=== PATIENT | male | born 1945 | race Caucasian/White ===

== ENCOUNTER 2017-04-24 05:28 | Inpatient (IN) ==
--- NOTE | 2017-04-09 11:17 | EKG Report ---
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
[2017-04-09 11:32] LABS: Basophils # 0.1 10*3/uL (0.0-0.2); Basophils % 0.5 % (0.0-0.8); Eosinophils # 0.1 10*3/uL (0.0-0.87); Eosinophils % 1.5 % (0.00-10.9); Hematocrit 45.7 VOL% (42.0-52.0); Hemoglobin 15.5 GM/DL (14.0-18.0); Immature Granulocytes % 0.4 %; Immature Granulocytes Absolute 0.04 #; Lymphocytes # 2.8 10*3/uL (1.4-4.0); Lymphocytes % 30.8 % (21.2-54.2); Mean Corpuscular HGB Conc 33.9 GM/DL (32-36); Mean Corpuscular Hemoglobin 31 PG (27-34); Mean Corpuscular Volume 90.5 FL (87-102); Mean Platelet Volume 9.8 FL (9.6-12.0); Monocytes # 0.9 10*3/uL (0.11-0.8); Monocytes % 9.7 % (1.7-12.7); Neutrophils # 5.2 10*3/uL (1.4-7.4); Neutrophils % 57.1 % (38.7-73.9); Platelet Count 217 T/CUMM (130-400); Red Blood Count 5.05 MC/CUMM (3.8-5.5); Red Cell Distribution Width 13.1 % (9.3-17.3); White Blood Count 9.2 T/CUMM (4-12)
[2017-04-09 11:35] LABS: Apearance,Urine CLEAR (Clear); Bilirubin,Urine Negative (Negative); Blood, Urine Negative (Negative); Glucose,Urine (UA) Negative (Negative); Ketones,Urine Negative (Negative); Nitrite,Urine Negative (Negative); Protein,Urine Negative; Squamous Epithelial Cell,Urine Occasional /HPF (0-10); Urine Color Straw (Yellow); Urine Specific Gravity 1.006 (1.001-1.035); Urine Urobilinogen < 2.0 EU/DL (0.2-1.0); WBC,Urine <1 /HPF (0-6)
[2017-04-09 11:42] LABS: PT Patient Result 10.4 SECS; Partial Thromboplastin Time 27.3 SECS (0-40)
[2017-04-09 12:10] LABS: Albumin 4.2 G/DL (3.4-5.0); Bilirubin,Total 0.6 MG/DL (0.2-1.0); Calcium 8.8 MG/DL (8.5-10.1); Osmolality,Calculated 282.1 MOS/KG (273-304); Potassium 4.7 MMOL/L (3.5-5.1); Total Protein 7.3 G/DL (6.4-8.3)
--- NOTE | 2017-04-09 14:13 | XRay Report ---
XR chest 2V Date: 04/09/2017 10:58 AM History: Respiratory preoperative evaluation Comparison: 11/12/2016 Technique: PA and lateral chest Findings: The heart is minimally enlarged with uncoiling of the aorta. Chronic scarring in the lungs with calcified granulomata. Stable mediastinum with degenerative changes. Impression: No acute cardiopulmonary pathology identified. PROCEDURE INTERPRETED AT [facility] DEPARTMENT OF RADIOLOGY Final Report Signed by: Dr. Blaire Chao
[~2017-04-24 05:28] MED LIST: LIDOCAINE 100 MG/5 ML SYRINGE ONE; ONDANSETRON 4 MG/2 ML VIAL ONE; PROPOFOL 200 MG/20 ML VIAL IV ONE
[2017-04-24] MEDS ORDERED: VANCOMYCIN 1,000 MG VIAL ONE (05:54)
[2017-04-24] MEDS ORDERED: SODIUM CHLORIDE 0.9% 100 ML IV ONE (05:54)
[2017-04-24] MEDS ORDERED: ceFAZolin 1,000 MG VIAL ONE (05:54)
[2017-04-24] MEDS ORDERED: LORazepam 1 MG TABLET PO ONE (06:00)
[2017-04-24] MEDS ORDERED: FAMOTIDINE 20 MG TABLET PO ONE (06:00)
[2017-04-24] MEDS ORDERED: TRANEXAMIC ACID 1,000 MG/10 ML VIAL IV ONE (06:13)
[2017-04-24] MEDS ORDERED: ONDANSETRON 4 MG/2 ML VIAL IV PRN ×3 (06:23→11:14)
[2017-04-24] MEDS ORDERED: HYDROmorphone 2 MG/1 ML VIAL IV PRN ×2 (06:23→11:14)
[2017-04-24] MEDS: LACTATED RINGERS 1,000 ML IV SCH ×2 (06:30→08:00)
[2017-04-24] MEDS ORDERED: CLINDAMYCIN INJ 900 MG in PREMIX 1 EACH IV ONE (06:30)
[2017-04-24] MEDS ORDERED: VANCOMYCIN INJ 1,000 MG in SODIUM CHLORIDE 0.9% 250 ML IV ONE (06:30)
[2017-04-24] MEDS ORDERED: methylPREDNISolone SOD SUC 125 MG/2 ML VIAL ONE (06:35)
[2017-04-24] MEDS ORDERED: EPINEPHrine 1 MG/ML VIAL ONE (06:35)
[2017-04-24] MEDS ORDERED: MORPHINE 10 MG/1 ML VIAL ONE (06:35)
[2017-04-24] MEDS ORDERED: BUPIVACAINE 0.5% 50 ML VIAL ONE (06:35)
[2017-04-24] MEDS ORDERED: FAMOTIDINE 20 MG TABLET ONE (06:40)
[2017-04-24] MEDS ORDERED: LORazepam 1 MG TABLET ONE (06:40)
[2017-04-24] MEDS ORDERED: ACETAMINOPHEN 500 MG TABLET ONE (06:53)
[2017-04-24] MEDS ORDERED: ACETAMINOPHEN 500 MG TABLET PO STA (07:00)
[2017-04-24] MEDS: GABAPENTIN 400 MG CAPSULE PO SCH ×2 (07:00→14:47)
--- NOTE | 2017-04-24 07:00 | History and Physical Update ---
History and Physical Update - History and Physical H&P was reviewed, the patient examined and there: are no changes in the patients condition since last H&P was completed. - Dictation Physical: refer to scanned H&P
[2017-04-24] MEDS ORDERED: TEMAZEPAM 7.5 MG CAPSULE PO PRN (08:24)
[2017-04-24] MEDS ORDERED: MAGNESIUM HYDROXIDE SUSP 30 ML UDCUP PO PRN (08:24)
[2017-04-24] MEDS ORDERED: diphenhydrAMINE CAP 25 MG CAPSULE PO PRN (08:24)
[2017-04-24] MEDS ORDERED: ROPIVACAINE 0.5% 30 ML VIAL ONE (08:33)
[2017-04-24] MEDS ORDERED: fentaNYL 100 MCG/2 ML VIAL ONE (08:38)
[2017-04-24] MEDS ORDERED: MIDAZOLAM 2 MG/2 ML VIAL ONE (08:38)
[2017-04-24] MEDS ORDERED: ACETAMINOPHEN 1,000 MG/100 ML VIAL IV ONE (08:38)
--- NOTE | 2017-04-24 09:08 | XRay Report ---
XR knee 2V RT Indication: Joint replacement (right knee) Comparison: None Technique: Frontal and lateral views of the right knee Findings: Status post total right knee arthroplasty. Surgical drain and superficial skin megan overlie the knee. No evidence of immediate hardware failure. Subcutaneous and joint space air noted which is likely postoperative. IMPRESSION: Status post total right knee arthroplasty PROCEDURE INTERPRETED AT [facility] DEPARTMENT OF RADIOLOGY Final Report Signed by: Dr Gregory Hewitt
[2017-04-24] MEDS ORDERED: HYDROmorphone 2 MG/1 ML VIAL ONE (11:14)
[2017-04-24] MEDS ORDERED: ONDANSETRON 4 MG/2 ML VIAL ONE (11:14)
--- NOTE | 2017-04-24 13:34 | Anesthesia Post-Op ---
Anesthesia Post OP - Post Ansesthetic Evaluation Patient seen in post op: Yes Resp: within normal limits CV: within normal limits Mental: within normal limits Temp: within normal limits Wycf-Px-Onwifbvud: within normal limits Nausea and Vomiting: within normal limits Pain: within normal limits
[2017-04-24] MEDS: hydrALAZINE 10 MG TABLET PO SCH (14:47)
[2017-04-24] MEDS: hydroCHLOROthiazide 25 MG TABLET PO SCH (14:47)
[2017-04-24] MEDS: amLODIPine 10 MG TABLET PO SCH (14:47)
[2017-04-24] MEDS: VALSARTAN 160 MG TABLET PO SCH (14:47)
[2017-04-24] MEDS: DOCUSATE SODIUM 100 MG CAPSULE PO SCH ×2 (14:47→21:52)
[2017-04-24] MEDS: NEBIVOLOL 5 MG TABLET PO SCH (14:47)
[2017-04-24] MEDS: ACETAMINOPHEN 500 MG TABLET PO SCH ×2 (15:02→21:52)
[2017-04-24] MEDS: KETOROLAC 15 MG/1 ML VIAL IV SCH ×2 (15:03→21:53)
[2017-04-24] MEDS: ceFAZolin 2,000 MG in PREMIX 1 EACH IV SCH (16:39)
--- NOTE | 2017-04-24 17:09 | Orthopedic Progress Note ---
Assessment and Plan (1) Status post total right knee replacement Status: Acute Assessment and plan: Perioperative antibiotics DVT prophylaxis Continue therapy Discharge planning Current Visit: Yes Orthopedics - Subjective Interval history: Patient is doing well postoperatively. He sitting in the bedside chair. Pain is controlled. On exam dressings clean and dry Exam - Constitutional Vitals: Period Temp Pulse Resp BP Sys/Alexis Pulse Ox Last 24 Hr 97 F-98 F 58-73 16-20 110-165/55-95 20-100 Results - Labs CBC & BMP: 04/09/17 11:03 04/09/17 11:03
[2017-04-24] MEDS: MULTIVITAMIN (CENTRUM) TABLET PO SCH (21:52)
[2017-04-24] MEDS: ROSUVASTATIN 10 MG TABLET PO SCH (21:52)
[2017-04-24] MEDS: CETIRIZINE 10 MG TABLET PO SCH (21:53)
[2017-04-24] MEDS: SODIUM CHLORIDE 0.9% 1,000 ML IV SCH (23:50)
[2017-04-25] MEDS: ceFAZolin 2,000 MG in PREMIX 1 EACH IV SCH (00:26)
[2017-04-25 01:27] LABS: Basophils % 0.2 % (0.0-0.8); Hematocrit 37.4 VOL% (42.0-52.0); Hemoglobin 13.1 GM/DL (14.0-18.0); Immature Granulocytes % 0.5 %; Immature Granulocytes Absolute 0.07 #; Lymphocytes # 1.5 10*3/uL (1.4-4.0); Lymphocytes % 11.1 % (21.2-54.2); Mean Corpuscular Hemoglobin 31 PG (27-34); Mean Corpuscular Volume 88.4 FL (87-102); Mean Platelet Volume 9.8 FL (9.6-12.0); Monocytes % 7.7 % (1.7-12.7); Neutrophils # 10.8 10*3/uL (1.4-7.4); Neutrophils % 80.5 % (38.7-73.9); Platelet Count 191 T/CUMM (130-400); Red Blood Count 4.23 MC/CUMM (3.8-5.5); Red Cell Distribution Width 13.1 % (9.3-17.3); White Blood Count 13.5 T/CUMM (4-12)
[2017-04-25 01:50] LABS: Calcium 7.7 MG/DL (8.5-10.1); Osmolality,Calculated 280.4 MOS/KG (273-304); Potassium 3.9 MMOL/L (3.5-5.1)
[2017-04-25] MEDS: ACETAMINOPHEN 500 MG TABLET PO SCH ×2 (02:15→09:30)
[2017-04-25] MEDS: KETOROLAC 15 MG/1 ML VIAL IV SCH (02:24)
[2017-04-25] MEDS: SODIUM CHLORIDE 0.9% 1,000 ML IV SCH ×2 (02:25→07:12)
[2017-04-25] MEDS: ENOXAPARIN 40 MG/0.4 ML SYRINGE SUBCUT SCH (06:10)
[2017-04-25] MEDS ORDERED: ACETAMINOPHEN 325 MG TABLET PO PRN (08:25)
[2017-04-25] MEDS: NEBIVOLOL 5 MG TABLET PO SCH (09:29)
[2017-04-25] MEDS: hydrALAZINE 10 MG TABLET PO SCH (09:29)
[2017-04-25] MEDS: DOCUSATE SODIUM 100 MG CAPSULE PO SCH ×2 (09:30→21:13)
[2017-04-25] MEDS: hydroCHLOROthiazide 25 MG TABLET PO SCH (09:30)
[2017-04-25] MEDS: amLODIPine 10 MG TABLET PO SCH (09:30)
[2017-04-25] MEDS: VALSARTAN 160 MG TABLET PO SCH (09:30)
[2017-04-25] MEDS: GABAPENTIN 400 MG CAPSULE PO SCH (09:41)
--- NOTE | 2017-04-25 12:16 | Orthopedic Progress Note ---
Assessment and Plan (1) Status post total right knee replacement Status: Acute Assessment and plan: DVT prophylaxis Continue therapy Discharge planning, hopefully home with home therapy tomorrow Current Visit: Yes Orthopedics - Subjective Interval history: Patient has no complaints this morning. His pain is controlled. He is ready to work with therapy. On exam his dressings clean and dry, is neurovascularly intact. Exam - Constitutional Vitals: Period Temp Pulse Resp BP Sys/Alexis Pulse Ox Last 24 Hr 97 F-98.4 F 58-73 16-20 110-165/55-95 20-100 Results - Labs CBC & BMP: 04/25/17 01:11 04/25/17 01:11
[2017-04-25] MEDS: CELECOXIB 200 MG CAPSULE PO SCH (15:25)
--- NOTE | 2017-04-25 16:19 | Pathology Report from [facility] ---
[facility] [place] ACCESSION # : [id number] PATIENT NAME : Ronny He ORDERING DR : Harrison Silva MD CLINICAL HX: Right knee bone osteoarthritis POST-OP DX: Same SPECIMEN INFO: Right knee bone and tissue GROSS DESCRIPTION: The specimen is received in formalin labeled RONNY HE/ RIGHT KNEE consists of fragments of bone, cartilage and some adipose tissue collectively measuring 11.9 x 14.2 cm. The articular surface are degenerative with areas of subchondral eburnation measuring up to 3.0 cm. There is cartilaginous material is present . Field Hauler tissue submitted in one cassette following decalcification. DIAGNOSIS FOR RONNY HE: RIGHT KNEE BONE & TISSUE, TOTAL REPLACEMENT: Osteoarthritis. COLLECTED DATE: 04/24/2017 [facility] REPORT DATE: 04/25/2017 ELECTRONICALLY SIGNED BY: Ainsley Mann M.D. 04/25/2017 - 10:19:27 [facility]
[2017-04-25] MEDS: ROSUVASTATIN 10 MG TABLET PO SCH (21:13)
[2017-04-25] MEDS: MULTIVITAMIN (CENTRUM) TABLET PO SCH (21:13)
[2017-04-25] MEDS: CETIRIZINE 10 MG TABLET PO SCH (21:13)
[2017-04-26 04:30] LABS: Basophils # 0.1 10*3/uL (0.0-0.2); Basophils % 0.5 % (0.0-0.8); Eosinophils # 0.3 10*3/uL (0.0-0.87); Eosinophils % 2.5 % (0.00-10.9); Hematocrit 34.9 VOL% (42.0-52.0); Hemoglobin 12.2 GM/DL (14.0-18.0); Immature Granulocytes % 0.5 %; Immature Granulocytes Absolute 0.05 #; Lymphocytes # 2.2 10*3/uL (1.4-4.0); Lymphocytes % 19.5 % (21.2-54.2); Mean Corpuscular Hemoglobin 31 PG (27-34); Mean Corpuscular Volume 88.6 FL (87-102); Mean Platelet Volume 10.2 FL (9.6-12.0); Monocytes # 1.3 10*3/uL (0.11-0.8); Monocytes % 12.2 % (1.7-12.7); Neutrophils # 7.1 10*3/uL (1.4-7.4); Neutrophils % 64.8 % (38.7-73.9); Platelet Count 167 T/CUMM (130-400); Red Blood Count 3.94 MC/CUMM (3.8-5.5); Red Cell Distribution Width 13.4 % (9.3-17.3)
[2017-04-26] MEDS: ENOXAPARIN 40 MG/0.4 ML SYRINGE SUBCUT SCH (05:40)
--- NOTE | 2017-04-26 06:51 | Discharge Summary ---
Hospital Course - Hospital Course Hospital Course: 72-year-old male admitted hospital following total knee arthroplasty. He tolerated the procedure well was transferred for stable condition postoperatively. He received routine antibiotics and thromboprophylaxis. Seen by physical therapy. Once he was ambulating safely, subsequently discharged home. Time of discharge was clean and dry he is neurovascularly intact. Diagnosis - Discharge Diagnosis (1) Status post total right knee replacement Status: Acute Specialty Discharge - Follow Up or Referrals Follow up with: Harrison Silva MD [Physician] - (2-3 weeks) Discharge Plan - Discharge Data Disposition: Home Health Service Condition at Discharge: Stable Discharge Diet: advance to your usual diet Activity: ambulate only with your walker Hygiene: may shower Weight Bearing at Discharge: weight bear as tolerated Driving: not until seen by doctor Contact your physician if you experience:: fever over 101, Difficulty voiding, Redness or swelling, Nausea/Vomiting, Shortness of breath, Bleeding, pain uncontrolled by pain medications Wound / Dressing Care Instructions: Ok to shower, no tub soaks. [place] out 05/08 - Discharge Medications New Celecoxib [Celebrex] 200 mg PO DAILY capsule Docusate Sodium Cap [Colace Cap] 100 mg PO BID capsule Acetaminophen Tab [Tylenol Tab] 650 mg PO Q6H PRN tablet PRN Reason: Pain Mild (1-3) HYDROcodone/ACETAMIN 7.5-325 [[place] 7.5-325] 1 - 2 tablet PO Q4H PRN #60 tablet PRN Reason: Pain Moderate (4-7) Continue Amlodipine/Valsartan [Exforge 10-320 mg Tablet] 1 each PO DAILY Nebivolol [Bystolic] 5 mg PO DAILY hydroCHLOROthiazide [Hydrochlorothiazide] 25 mg PO DAILY hydrALAZINE TAB [Apresoline Tab] 10 mg PO DAILY Rosuvastatin [Crestor] 10 mg PO BEDTIME Cetirizine Tab [ZyrTEC Tab] 10 mg PO BEDTIME Multivitamin [One Daily Multivitamin] 1 tablet PO BEDTIME Changed Aspirin EC Tab 325 mg PO DAILY #30 Discontinued Meloxicam 15 mg PO DAILY - Follow Up or Referral Follow Up: Harrison Silva MD [Physician] - (2-3 weeks) - Forms/Instructions Exam - Constitutional Vitals: Period Temp Pulse Resp BP Sys/Alexis Pulse Ox Last 24 Hr 97.5 F-98.9 F 63-96 16-20 130-155/69-83 94-98 Discharge Results Procedures and tests throughout hospitalization: Pending Orders 04/27/17 04:00 Comp Blood Count Auto Diff IN AM Labs on day of discharge: Labs from last 24 hours 04/26/17 04:01 WBC 11.0 RBC 3.94 Hgb 12.2 L Hct 34.9 L MCV 88.6 MCH 31 MCHC 35.0 RDW 13.4 Plt Count 167 MPV 10.2 Neut % (Auto) 64.8 Lymph % (Auto) 19.5 L Orange % (Auto) 12.2 Eos % (Auto) 2.5 Baso % (Auto) 0.5 Neut # (Auto) 7.1 Lymph # (Auto) 2.2 Orange # (Auto) 1.3 H Eos # (Auto) 0.3 Baso # (Auto) 0.1 Immature Gran % 0.5 Nucleated RBC % 0.0 Immature Gran # 0.05 Nucleated RBCs # 0.00 DS: Provider Date of admission: 04/24/17 05:28 Primary care physician: Justin Shore Attending physician on admission: Harrison Silva MD Consults: 04/24/17 08:25 Consult to Case Mgmt/Social Srvs [CONS] Routine Reason for Case Mgmt/Social Srvs: Rehab Home Health Equipment Consult Comment: Bedside Commode, CPM, Walker Consult to Occupational Therapy [CONS] Routine Reason for Occupational Therapy: Evaluate and Treat Start Therapy: Tomorrow Consult Comment: ADL's Consult to Physical Therapy [CONS] Routine Reason for Physical Therapy: Evaluate and Treat Gait Training Start Therapy: Today 04/24/17 15:20 Consult to Pastoral Services [CONS] Routine Comment: Pastoral Screen: Request Shutdown Coordinator Visit Pastoral Screen Source of Request: Patient Discharging clinician: Harrison Silva MD
[2017-04-26] MEDS ORDERED: MAGNESIUM HYDROXIDE SUSP 30 ML UDCUP PO ONE (07:11)
[2017-04-26 07:32] VITALS: BP 155/86
[2017-04-26] MEDS: VALSARTAN 160 MG TABLET PO SCH (08:32)
[2017-04-26] MEDS: hydrALAZINE 10 MG TABLET PO SCH (08:32)
[2017-04-26] MEDS: hydroCHLOROthiazide 25 MG TABLET PO SCH (08:32)
[2017-04-26] MEDS: NEBIVOLOL 5 MG TABLET PO SCH (08:33)
[2017-04-26] MEDS: amLODIPine 10 MG TABLET PO SCH (08:33)
[2017-04-26] MEDS: DOCUSATE SODIUM 100 MG CAPSULE PO SCH (08:34)
[2017-04-26] MEDS: CELECOXIB 200 MG CAPSULE PO SCH (08:34)
[2017-04-26] MEDS: GABAPENTIN 400 MG CAPSULE PO SCH (12:47)
--- NOTE | 2017-05-01 11:15 | Physician Query Form ---
CLICK EDIT DOCUMENT TO SELECT QUERY ANSWER --> OK --> SIGN Jeanne Olsen RN Clinical Landscape Supervisor W) [phone] (f) [phone] [email or web address]: Make your selection(s) from the choices in EACH section by typing an "x" and enter comments in the comment section. Please use your independent medical judgment in providing your response. This request does not imply that any particular answer is desired or expected. 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: 41.3 Blueprint Clerk Notes: Class 3 obesity If applicable, please provide an associated diagnosis related to the abnormal BMI: BMI of 40 or greater: ( ) Overweight ( x) Obesity ( ) Morbid//Severe Obesity ( ) Obesity with Alveolar Hypoventilation ( ) Weight Gain ( ) BMI is not significant ( ) Other, please specify: ( ) Clinically unable to determine COMMENTS: PLEASE ALSO DOCUMENT RESPONSE IN PROGRESS NOTES AND/OR DISCHARGE SUMMARY Use of terms such as suspected, likely, or probable (associated with a specific diagnosis that is being evaluated, monitored, or treated as if it exists) are acceptable and can be restated in the discharge summary if not ruled out. MTDD
== END 2017-04-26 11:00 | disposition home health service (06) | DRG 470 ==
LOC: N.SDSINP 05:28 → N.3E 12:48
PROVIDERS: ADMIT Orthopaedic Surgery; ATTEND Orthopaedic Surgery